=== PATIENT | female | born 1945 | race Caucasian/White ===

== ENCOUNTER → 2016-10-13 | Outpatient (REF) ==
[2003-06-25 08:41] VITALS: BP 152/90; PULSE 60
[~2016-10-13] MED LIST: ALAWAY 10 ML10 ML OP; ANTIVERT 12.512.5 MG PO; ASPIRIN 81M81 MG/TA2 PO; BENADRYL25 M2 PO; CALCIUM 600 PLU1 TAB PO; CLARITIN 1010 MG/TAB PO; DULCOLAX TAB5 MG PO; ESTRACE0.5 MG PO; GLUCOSAMINE & C1 CA1 PO; HCTZ 25MG TAB25 MG PO; LINSEED OIL 1 ML1 ML PO; MIRAPEX0.25 MG PO; NATURAL MAGNES200 MG PO; OPTIVAR 6 ML 6 M6 ML OP; PRINIVIL40 MG PO; QUESTRAN4 GM/9 GM PO; SYSTANE 0.4%-0.1 SOL OP
[2016-10-13 17:50] LABS: THYROID STIMULATING HORMONE 0.941 uIU/mL (0.465-4.680)
== END ==
LOC: ZLAB.WCH 16:49
PROVIDERS: Family Medicine
DX: Z01.89 Encounter for other specified special examinations (principal)

== ENCOUNTER 2017-02-08 11:49 | Emergency (ER) | payer MEDICARE, BC ==
[~2017-02-08] VITALS: Ht 157.5 cm; Wt 79.5 kg
[2017-02-08 11:52] VITALS: TEMP 98.3
[2017-02-08] MEDS ORDERED: HCTZ 25MG TAB25 MG PO (12:21)
[2017-02-08] MEDS ORDERED: PRINIVIL40 MG PO (12:21)
[2017-02-08] MEDS ORDERED: QUESTRAN4 GM/9 GM PO (12:22)
[2017-02-08] MEDS ORDERED: ASPIRIN 81M81 MG/TA2 PO (12:23)
[2017-02-08] MEDS ORDERED: ESTRACE0.5 MG PO (12:23)
[2017-02-08] MEDS ORDERED: NATURAL MAGNES200 MG PO (12:24)
[2017-02-08] MEDS ORDERED: CALCIUM 600 PLU1 TAB PO (12:24)
[2017-02-08] MEDS ORDERED: LINSEED OIL 1 ML1 ML PO (12:25)
[2017-02-08] MEDS ORDERED: CLARITIN 1010 MG/TAB PO (12:26)
[2017-02-08] MEDS ORDERED: ALAWAY 10 ML10 ML OP (12:26)
[2017-02-08] MEDS ORDERED: DULCOLAX TAB5 MG PO (12:26)
[2017-02-08] MEDS ORDERED: OPTIVAR 6 ML 6 M6 ML OP (12:27)
[2017-02-08] MEDS ORDERED: BENADRYL25 M2 PO (12:27)
[2017-02-08] MEDS ORDERED: SYSTANE 0.4%-0.1 SOL OP (12:28)
[2017-02-08] MEDS ORDERED: GLUCOSAMINE & C1 CA1 PO (12:30)
[2017-02-08] MEDS ORDERED: MIRAPEX0.25 MG PO (12:30)
[2017-02-08 13:01] LABS: BASO # 0.1 (0.0-0.2); BASO % 0.8 % (0.0-2.0); EOS # 0.2 (0.0-0.7); EOS % 2.3 % (0-4.0); GRAN # 4.8 (1.4-6.5); GRAN % 59.8 % (42.2-75.2); HEMATOCRIT 39.6 % (37.0-47.0); HEMOGLOBIN 13.2 g/dl (12.5-16.0); LYMPH # 2.4 (1.2-3.4); LYMPH % 29.5 % (20.0-51.0); MEAN CELL VOLUME 89 fl (80.0-100.0); MEAN CORPUSCULAR HEMOGLOBIN 30 pg (27.0-31.0); MEAN CORPUSCULAR HGB CONC 33 g/dl (33.0-37.0); MEAN PLATELET VOLUME 9.5 fl (7.4-10.4); MONO # 0.6 (0.1-0.6); MONO % 7.3 % (1.7-9.3); PLATELET COUNT 241 K/mm3 (130-400); RED BLOOD COUNT 4.43 M/mm3 (4.10-5.30); REDCELL DISTRIBUTION WIDTH-CV 13.2 % (11.5-14.5)
[2017-02-08 13:07] LABS: PROTHROMBIN TIME 11.1 SECONDS (9.7-12.8)
[2017-02-08 13:09] LABS: ALANINE AMINOTRANSFERASE 30 U/L (9-52); ALBUMIN 4.5 gm/dL (3.5-5.0); ALKALINE PHOSPHATASE 37 U/L (50-136); ANION GAP 14 mmol/L (7-16); BILIRUBIN,TOTAL 0.8 mg/dL (0.0-1.0); BLOOD UREA NITROGEN 12 mg/dL (7-17); CALCIUM 9.4 mg/dL (8.4-10.2); CARBON DIOXIDE 28 mmol/L (22-30); CHLORIDE 95 mmol/L (98-107); CREATININE, serum 0.59 mg/dL (0.52-1.25); GLUCOSE 87 mg/dL (74-106); POTASSIUM 3.7 mmol/L (3.4-5.0); SODIUM 137 mmol/L (137-145); TOTAL PROTEIN 7.5 gm/dL (6.4-8.2)
[2017-02-08 13:10] LABS: PARTIAL THROMBOPLASTIN TIME 30.7 SECONDS (26.0-37.0)
[2017-02-08 13:20] LABS: PH 7 (5-8); SQUAMOUS EPITHELIAL 0-2 /hpf; URINE APPEARANCE Clear; URINE BACTERIA None Seen /hpf; URINE BILIRUBIN Negative (NEGATIVE); URINE BLOOD Negative (NEGATIVE); URINE COLOR Yellow; URINE GLUCOSE Negative (NEGATIVE); URINE KETONE Negative (NEGATIVE); URINE RBC 0-2 /hpf; URINE UROBILINOGEN Negative (NEGATIVE); URINE WBC 0-2 /hpf
[2017-02-08 13:20] LABS: TROPONIN-I < 0.012 ng/mL (0.000-0.034)
[2017-02-08] MEDS ORDERED: ANTIVERT 12.512.5 MG PO (14:32)
[2017-02-08 14:43] VITALS: BP 148/78; PULSE 52
== END 2017-02-08 14:44 | disposition home or self-care (01) ==
LOC: COL.ER 11:49
PROVIDERS: Physician Assistant
DX: R42 Dizziness and giddiness (principal); R51 Headache; I10 Essential (primary) hypertension; I77.71 Dissection of carotid artery

== ENCOUNTER → 2018-04-02 | Outpatient (REF) ==
[2003-06-25 08:41] VITALS: PULSE 60
== END ==
LOC: COL.CARD 13:12
DX: Z01.818 Encounter for other preprocedural examination (principal)

== ENCOUNTER → 2018-06-18 | Outpatient (CLI) | payer MEDICARE, BC ==
[2003-06-25 08:41] VITALS: PULSE 60
== END ==
LOC: MC.RAD 09:29
DX: N63.20 Unspecified lump in the left breast, unspecified quadrant (principal); Z98.82 Breast implant status

== ENCOUNTER 2018-07-11 06:20 | Day surgery (SDC) | payer MEDICARE, BC ==
[~2018-07-11] VITALS: Ht 157.5 cm; Wt 87.6 kg
[2018-07-11] VITALS (7 sets, daily range): BP systolic 132–179; BP diastolic 65–81; PULSE 67–82; TEMP 97.5–97.9
[2018-07-11] MEDS ORDERED: VESICARE10 MG PO (08:55)
[2018-07-11] MEDS ORDERED: QUESTRAN4 GM/9 GM PO (08:56)
[2018-07-11] MEDS ORDERED: SINGULAIR 110 MG/TAB PO (09:04)
[2018-07-11] MEDS ORDERED: ATROVENT INHALE14 GM IH (09:05)
[2018-07-11] MEDS ORDERED: PULMICORT180 MCG/Ac IH (09:05)
[2018-07-11] MEDS ORDERED: CALCIUM CARBON650 M2 PO (09:06)
[2018-07-11] MEDS ORDERED: STOOL SOFTENER100 M2 PO (09:09)
[2018-07-11] MEDS ORDERED: FLONASEALLERGY NS (09:14)
[2018-07-11] MEDS ORDERED: NORCO 325 MG-51 TAB PO (14:46)
== END 2018-07-11 16:10 | disposition home or self-care (01) ==
LOC: SDCO 06:20
DX: C50.412 Malignant neoplasm of upper-outer quadrant of left female breast (principal); G47.33 Obstructive sleep apnea (adult) (pediatric); E66.9 Obesity, unspecified; I10 Essential (primary) hypertension; G90.2 Horner's syndrome; J45.909 Unspecified asthma, uncomplicated; K21.9 Gastro-esophageal reflux disease without esophagitis; Z79.82 Long term (current) use of aspirin; Z90.49 Acquired absence of other specified parts of digestive tract; Z80.3 Family history of malignant neoplasm of breast; Z80.1 Family history of malignant neoplasm of trachea, bronchus and lung; Z82.3 Family history of stroke; Z80.52 Family history of malignant neoplasm of bladder; Z82.49 Family history of ischemic heart disease and other diseases of the circulatory system; Z88.1 Allergy status to other antibiotic agents; Z88.8 Allergy status to other drugs, medicaments and biological substances
CPT/HCPCS: A9541; C1788; J0690; J1100; J1885; J2250; J2405; J2704; J2765; J3010; J7120

== ENCOUNTER → 2018-07-23 | Outpatient (CLI) | payer MEDICARE, BC ==
[~2018-07-23] MED LIST changes: +ATROVENT INHALE14 GM IH; +CALCIUM CARBON650 M2 PO; +FLONASEALLERGY NS; +NORCO 325 MG-51 TAB PO; +PULMICORT180 MCG/Ac IH; +SINGULAIR 110 MG/TAB PO; +STOOL SOFTENER100 M2 PO; +VESICARE10 MG PO
== END ==
LOC: COL.VAS 10:30
DX: Z01.818 Encounter for other preprocedural examination (principal); C50.412 Malignant neoplasm of upper-outer quadrant of left female breast

== ENCOUNTER → 2018-08-16 | Outpatient (REF) | LOC: ZLAB.WCH 13:20 | DX: Z01.89 Encounter for other specified special examinations (principal) ==

== ENCOUNTER → 2018-11-19 | Outpatient (CLI) | payer MEDICARE, BC | LOC: COL.RAD 12:46 | DX: C50.412 Malignant neoplasm of upper-outer quadrant of left female breast (principal); M79.89 Other specified soft tissue disorders; Z92.21 Personal history of antineoplastic chemotherapy ==

== ENCOUNTER → 2021-12-07 | Outpatient (CLI) | payer MEDICARE, BC ==
[~2021-12-07] VITALS: Ht 160 cm; Wt 86.2 kg
== END ==
LOC: DIET.TELE 13:38